=== PATIENT | female | born 1955 | race Caucasian/White ===

== ENCOUNTER → 2016-12-26 10:31 | Day surgery (SDC) | payer BC ==
[~2016-12-26 10:31] MED LIST: Buffered Lidocaine 1% SYR 3ML* 3 ML/SYR SYRINGE INTRADERM ONE; Dexamethasone IV* 4 MG/ML 1 ML (4 MG) ONE; EPHEDrine (Pressors)* 50 MG/ML VIAL ONE; HYDROmorphone INJ* 1 MG/ML CARPUJECT SYRINGE IV PRN; Ibuprofen TAB* 400 MG PO PRN; Lidocain 1% EPI 1:100,000 * 30 ML MDV ONE; Lidocaine 2% PF * 5 ML VIAL ONE; Lidocaine 4% TOPICAL* 50 ML TOP.SOLN ONE; Midazolam* 1 MG/ML 2 ML VIAL (2 MG) ONE; Ondansetron INJ* 2 MG/ML VIAL ONE; Oxymetazoline 0.05% NASAL SPR* 15 ML BTL ONE; Propofol* 10 MG/ML 20 ML BTL IV PUSH ONE; Succinylcholine* 20 MG/ML 10 ML VIAL ONE; fentaNYL* 50 MCG/ML 2 ML VIAL (100 MCG VIAL) ONE
[2016-12-26 15:02] VITALS: BP 134/58
--- NOTE | 2016-12-27 00:38 | OP ---
DATE OF OPERATION: 12/26/16 - SDS DATE OF : 55 SURGEON: Fantasma Martel MD ANESTHESIOLOGIST: Savannah Tadeo MD ANESTHESIA: General endotracheal anesthesia. PRE-OP DIAGNOSIS: Chronic pansinusitis. POST-OP DIAGNOSIS: Chronic pansinusitis. OPERATIVE PROCEDURE: Bilateral functional endoscopic sinus surgery with maxillary antrostomy with debridement and debridement of the ethmoids. COMPLICATIONS: None. DISPOSITION: Good. SPECIMEN: There is no pathological specimen but I took cultures from both of her sides from her sinuses for aerobic, anaerobic fungal and I collected specimen in Lukens trap. BLOOD LOSS: Minimal. DESCRIPTION OF PROCEDURE: The patient was taken to the operating room, placed in the supine position on the operating table. General anesthesia was induced. She was orotracheally intubated, turned and draped for the surgery. Her nose was packed bilaterally with cottonoids impregnated with oxymetazoline and 4% lidocaine. Endoscope was inserted. She had thick across the purulent material in her ostiomeatal units bilaterally. I took cultures of this with routine aerobic, anaerobic, fungal cultures. I then injected her turbinates and lateral wall. I inserted curved suctions into her maxillary sinuses and collected this in Lukens trap to sent for culture. The sinuses were filled with this material and she has had some polypoid tissue in her ethmoids, which I used Blakesley to debride, I widened the maxillary ostomy to try to allow further drainage using the debrider trying to remove a shelf where material was being trapped and debrided the anterior middle turbinates which was blocking drainage and then Stammberger sinus foam was placed bilaterally lateral to the turbinates. The patient tolerated the procedure well, no complications, transferred to the recovery room in stable condition. [id number]/[facility] #: [id number] MTDD
== END | disposition home or self-care (01) ==
LOC: OR 10:31
PROVIDERS: ATTEND Otolaryngology
DX: J32.4 Chronic pansinusitis (principal); K21.9 Gastro-esophageal reflux disease without esophagitis; E03.9 Hypothyroidism, unspecified
CPT/HCPCS: 87070; 87073; 87077; 87102; 87186; 87205; A9270-GY; J0330; J1100; J2250; J2405; J2704; J3010